=== PATIENT | female | born 1970 | race Caucasian/White ===

== ENCOUNTER 2017-01-08 07:30 | Emergency (ER) | payer OTHER ==
[2017-01-08] MEDS ORDERED: LEXAPRO20 M2 PO (07:41)
[2017-01-08] MEDS ORDERED: NORCO 5-325 TA1 EACH PO (08:32)
== END 2017-01-08 08:35 ==
LOC: EDMED 07:30
PROC: 2W3QX1Z Immobilization of Right Lower Leg using Splint (ICD-10-PCS; principal; 2017-01-08)
DX: S92.351A Displaced fracture of fifth metatarsal bone, right foot, initial encounter for closed fracture (principal); S93.401A Sprain of unspecified ligament of right ankle, initial encounter; W10.9XXA Fall (on) (from) unspecified stairs and steps, initial encounter; Y93.89 Activity, other specified; Y92.019 Unspecified place in single-family (private) house as the place of occurrence of the external cause; Y99.8 Other external cause status